=== PATIENT | male | born 1930 | race Caucasian/White ===

== ENCOUNTER 2018-06-16 19:56 | Inpatient (IN) | payer MEDICARE, BC ==
[~2018-06-16] VITALS: Ht 177.8 cm; Wt 77.1 kg
--- NOTE | ~2018-06-16 | EKG ---
[place], [place] ELECTROCARDIOGRAM REPORT NAME: MIKE CAM SR UNIT #: [id number] ROOM: 412 DOCTOR: EPIPHANY DRAFT REPORT BIRTHDATE: [birth year] [facility] Test Date: 2018-06-16 Test Time: 21:25:46 Pat Name: MIKE CAM Department: Room: 412 Gender: M Brush Maker Machine: Madonna Soriano : 1930 Requested By: TOMA MANCIA Order Number: [id number] Reading MD: Giacomo De MD Measurements Intervals [place] Rate: 82 P: [place]: QRS: -63 QRSD: 96 T: 124 QT: 422 QTc: 493 Interpretive Statements Atrial fibrillation Left anterior fascicular block Abnormal R-wave progression, late transition Borderline repolarization abnormality Borderline prolonged QT interval Compared to ECG 04/16/2018 18:18:06 No significant changes Electronically Signed On 06-17-2018 12:17:38 PST by Giacomo De MD CM:EKGRPT:ELECTROCARDIOGRAM REPORT [id number] TOMA MANCIA MD EPIPHANY DRAFT REPORT TOMA MANCIA MD
[~2018-06-16 19:56] MED LIST: ALLOPURINOL100 MG PO; AMLODIPINE BESYL5 MG PO; ARICEPT5 M1 PO; ASPIR LOW81 MG PO; CEPHALEXIN500 M1 PO; CIALIS5 MG PO; CIPRO500 MG PO; COLESTID1 GM PO; ESCITALOPRAM OXA5 MG PO; FLAGYL500 MG PO; FLECAINIDE ACET50 M1 PO; LISINOPRIL40 MG PO; Lopressor25 MG PO; MIRALAX POWDER17 G1 PO; PRILOSEC20 M2 PO; TOPROL XL25 MG PO; TYLENOL325 M2 PO; ZOFRAN ODT4 MG SL
[2018-06-16 19:59] VITALS: BP 154/94
[2018-06-16 20:41] LABS: BILIRUBIN NEGATIVE (NEGATIVE); BLOOD TRACE-INTACT (NEGATIVE); CLARITY CLEAR (CLEAR); COLOR YELLOW (YELLOW); GLUCOSE NEGATIVE (NEGATIVE); KETONE NEGATIVE (NEGATIVE); LEUKO ESTERASE NEGATIVE (NEGATIVE); NITRITE NEGATIVE (NEGATIVE); PH 5.5 (5.0-9.0); SPECIFIC GRAVITY >= 1.030 (1.005-1.030); UROBILINOGEN 0.2 E.U./dl (0.2-1.0)
[2018-06-16 20:48] LABS: MUCOUS TRACE
[2018-06-16 21:40] LABS: BASO % 0.3 % (0.0-1.0); EOS # 0.1 10*3/uL (0.0-0.4); HEMATOCRIT 39.4 % (42.0-52.0); HEMOGLOBIN 13.7 g/dl (14.0-18.0); LYMPH # 1.5 10*3/uL (1.3-4.4); MEAN CELL VOLUME 99.7 fl (80.0-94.0); MEAN CORPUSCULAR HGB 34.7 pg (27.0-31.0); MEAN CORPUSCULAR HGB CONC 34.8 g/dl (33.0-37.0); MEAN PLATELET VOLUME 10.5 fl (9.6-12.3); MONO # 0.4 10*3/uL (0.1-1.0); NEUT # 5.1 10*3/uL (2.3-7.9); NEUT % 71.4 % (47.0-73.0); PLATELET COUNT AUTOMATED 137 10*3/uL (130-400); RED BLOOD COUNT 3.95 10*6/uL (4.50-5.90); RED CELL DISTRI WIDTH 13.4 % (0-14.5); WHITE BLOOD COUNT 7.2 10*3/uL (4.8-10.8)
[2018-06-16 21:51] LABS: ALBUMIN 3.3 gm/dl (3.1-4.5); ALKALINE PHOSPHATASE 71 U/L (45-117); BUN 18 mg/dl (7-24); CHLORIDE 107 mmol/L (98-107); POTASSIUM 3.8 mmol/L (3.5-5.1); SGOT/AST 7 IU/L (3-35); SGPT/ALT 11 U/L (12-78); SODIUM 143 mmol/L (136-145); TOTAL PROTEIN 6.9 gm/dL (6.4-8.2)
[2018-06-16 21:58] LABS: TROPONIN I < 0.015 ng/ml (<0.045)
[2018-06-16 22:40] VITALS: BP 146/86
[2018-06-16 23:10] VITALS: BP 142/86
[2018-06-16 23:40] VITALS: BP 150/93
[2018-06-17] VITALS (8 sets, daily range): BP systolic 125–172; BP diastolic 56–96
[2018-06-17 06:00] LABS: BASO % 0.2 % (0.0-1.0); EOS # 0.1 10*3/uL (0.0-0.4); EOS % 1.1 % (1.0-4.0); HEMATOCRIT 36.6 % (42.0-52.0); HEMOGLOBIN 12.5 g/dl (14.0-18.0); LYMPH # 1.6 10*3/uL (1.3-4.4); LYMPH % 29.1 % (27.0-41.0); MEAN CELL VOLUME 100.8 fl (80.0-94.0); MEAN CORPUSCULAR HGB 34.4 pg (27.0-31.0); MEAN CORPUSCULAR HGB CONC 34.2 g/dl (33.0-37.0); MEAN PLATELET VOLUME 10.8 fl (9.6-12.3); MONO # 0.4 10*3/uL (0.1-1.0); MONO % 6.6 % (3.0-9.0); NEUT # 3.5 10*3/uL (2.3-7.9); NEUT % 62.8 % (47.0-73.0); PLATELET COUNT AUTOMATED 110 10*3/uL (130-400); RED BLOOD COUNT 3.63 10*6/uL (4.50-5.90); RED CELL DISTRI WIDTH 13.4 % (0-14.5); WHITE BLOOD COUNT 5.5 10*3/uL (4.8-10.8)
[2018-06-17 06:11] LABS: ALBUMIN 2.9 gm/dl (3.1-4.5); ALKALINE PHOSPHATASE 58 U/L (45-117); BUN 17 mg/dl (7-24); CHLORIDE 108 mmol/L (98-107); CREATININE 1.17 mg/dL (0.70-1.30); PHOSPHOROUS 2.8 mg/dL (2.5-4.9); POTASSIUM 3.7 mmol/L (3.5-5.1); SGOT/AST 7 IU/L (3-35); SGPT/ALT 11 U/L (12-78); SODIUM 145 mmol/L (136-145); TOTAL PROTEIN 6.1 gm/dL (6.4-8.2)
[2018-06-18] VITALS: BP 148/74
[2018-06-18 08:00] VITALS: BP 145/98
[2018-06-18 12:00] VITALS: BP 155/96
[2018-06-18 16:00] VITALS: BP 90/50
[2018-06-18 20:00] VITALS: BP 159/89
[2018-06-19] VITALS: BP 113/65
[2018-06-19 08:00] VITALS: BP 128/66
[2018-06-19 12:00] VITALS: BP 120/68
[2018-06-19 16:00] VITALS: BP 126/52
[2018-06-19 20:00] VITALS: BP 94/57
[2018-06-20] VITALS: BP 149/82
[2018-06-20 05:58] LABS: BUN 18 mg/dl (7-24); CHLORIDE 104 mmol/L (98-107); CREATININE 1.18 mg/dL (0.70-1.30); POTASSIUM 3.9 mmol/L (3.5-5.1); SODIUM 139 mmol/L (136-145)
[2018-06-20 06:11] LABS: BASO % 0.5 % (0.0-1.0); EOS # 0.1 10*3/uL (0.0-0.4); EOS % 1.5 % (1.0-4.0); HEMATOCRIT 37.3 % (42.0-52.0); HEMOGLOBIN 12.9 g/dl (14.0-18.0); LYMPH % 33.3 % (27.0-41.0); MEAN CELL VOLUME 99.2 fl (80.0-94.0); MEAN CORPUSCULAR HGB 34.3 pg (27.0-31.0); MEAN CORPUSCULAR HGB CONC 34.6 g/dl (33.0-37.0); MEAN PLATELET VOLUME 10.4 fl (9.6-12.3); MONO # 0.4 10*3/uL (0.1-1.0); MONO % 6.5 % (3.0-9.0); NEUT # 3.5 10*3/uL (2.3-7.9); PLATELET COUNT AUTOMATED 146 10*3/uL (130-400); RED BLOOD COUNT 3.76 10*6/uL (4.50-5.90); RED CELL DISTRI WIDTH 13.3 % (0-14.5)
[2018-06-20 08:01] VITALS: BP 176/92
[2018-06-20 12:00] VITALS: BP 140/76
[2018-06-20] MEDS ORDERED: AMLODIPINE BESYL5 MG PO (14:43)
[2018-06-20 16:00] VITALS: BP 119/83
== END 2018-06-20 19:45 | disposition home health service (06) | DRG 551 ==
LOC: ED 19:56 → EDHOLD 06-17 00:07 → 4E 06-17 00:07
PROVIDERS: Emergency Medicine Emergency Medical Services; Internal Medicine
DX: M48.061 Spinal stenosis, lumbar region without neurogenic claudication (principal); N17.0 Acute kidney failure with tubular necrosis; E87.2 Acidosis; E44.1 Mild protein-calorie malnutrition; M51.36 Other intervertebral disc degeneration, lumbar region; R26.2 Difficulty in walking, not elsewhere classified; M41.80 Other forms of scoliosis, site unspecified; E83.41 Hypermagnesemia; M43.10 Spondylolisthesis, site unspecified; E86.0 Dehydration; R31.29 Other microscopic hematuria; N28.1 Cyst of kidney, acquired; K57.90 Diverticulosis of intestine, part unspecified, without perforation or abscess without bleeding; N20.0 Calculus of kidney; R91.1 Solitary pulmonary nodule; F03.90 Unspecified dementia, unspecified severity, without behavioral disturbance, psychotic disturbance, mood disturbance, and anxiety; M47.896 Other spondylosis, lumbar region; I48.0 Paroxysmal atrial fibrillation; M10.9 Gout, unspecified; I10 Essential (primary) hypertension; R73.9 Hyperglycemia, unspecified; R53.1 Weakness; K21.9 Gastro-esophageal reflux disease without esophagitis; D64.9 Anemia, unspecified; R32 Unspecified urinary incontinence; R15.9 Full incontinence of feces; M19.90 Unspecified osteoarthritis, unspecified site; G62.9 Polyneuropathy, unspecified; E87.8 Other disorders of electrolyte and fluid balance, not elsewhere classified; R00.1 Bradycardia, unspecified; Z85.038 Personal history of other malignant neoplasm of large intestine; Z87.440 Personal history of urinary (tract) infections; Z90.49 Acquired absence of other specified parts of digestive tract; Z87.891 Personal history of nicotine dependence; Z82.3 Family history of stroke; Z82.49 Family history of ischemic heart disease and other diseases of the circulatory system; Z79.899 Other long term (current) drug therapy; Z68.24 Body mass index [BMI] 24.0-24.9, adult

== ENCOUNTER 2018-09-10 14:13 | Emergency (ER) | payer MEDICARE, BC ==
[~2018-09-10] VITALS: Ht 180.3 cm; Wt 82.6 kg
[2018-09-10 14:50] LABS: BASO % 0.6 % (0.0-1.0); EOS # 0.1 10*3/uL (0.0-0.4); EOS % 1.3 % (1.0-4.0); HEMATOCRIT 39.5 % (42.0-52.0); LYMPH # 1.5 10*3/uL (1.3-4.4); LYMPH % 27.3 % (27.0-41.0); MEAN CELL VOLUME 99.5 fl (80.0-94.0); MEAN CORPUSCULAR HGB 35.3 pg (27.0-31.0); MEAN CORPUSCULAR HGB CONC 35.4 g/dl (33.0-37.0); MEAN PLATELET VOLUME 9.8 fl (9.6-12.3); MONO # 0.3 10*3/uL (0.1-1.0); MONO % 5.6 % (3.0-9.0); NEUT # 3.5 10*3/uL (2.3-7.9); NEUT % 64.8 % (47.0-73.0); PLATELET COUNT AUTOMATED 131 10*3/uL (130-400); RED BLOOD COUNT 3.97 10*6/uL (4.50-5.90); RED CELL DISTRI WIDTH 13.1 % (0-14.5); WHITE BLOOD COUNT 5.3 10*3/uL (4.8-10.8)
[2018-09-10 15:22] LABS: ALBUMIN 3.3 gm/dl (3.1-4.5); ALKALINE PHOSPHATASE 69 U/L (45-117); BUN 19 mg/dl (7-24); CHLORIDE 105 mmol/L (98-107); CREATININE 1.21 mg/dL (0.70-1.30); POTASSIUM 4.1 mmol/L (3.5-5.1); SGOT/AST 21 IU/L (3-35); SGPT/ALT 17 U/L (12-78); SODIUM 139 mmol/L (136-145)
[2018-09-10 15:25] LABS: BILIRUBIN NEGATIVE (NEGATIVE); BLOOD 1+ (NEGATIVE); CLARITY CLEAR (CLEAR); COLOR YELLOW (YELLOW); GLUCOSE NEGATIVE (NEGATIVE); KETONE NEGATIVE (NEGATIVE); LEUKO ESTERASE NEGATIVE (NEGATIVE); NITRITE NEGATIVE (NEGATIVE); UROBILINOGEN 0.2 E.U./dl (0.2-1.0)
[2018-09-10 15:31] LABS: BACTERIA 1+; EPITHELIAL CELLS 0-2; MUCOUS TRACE; WBC 0-2 wbc/hpf (0-5)
== END 2018-09-10 16:45 | disposition home or self-care (01) ==
LOC: ED 14:13
PROVIDERS: Student in an Organized Health Care Education/Training Program
DX: R41.82 Altered mental status, unspecified (principal); I10 Essential (primary) hypertension; K21.9 Gastro-esophageal reflux disease without esophagitis; G62.9 Polyneuropathy, unspecified; I48.0 Paroxysmal atrial fibrillation; Z79.899 Other long term (current) drug therapy; Z79.82 Long term (current) use of aspirin; Z90.49 Acquired absence of other specified parts of digestive tract; Z87.891 Personal history of nicotine dependence

== ENCOUNTER 2019-04-09 00:26 | Inpatient (IN) | payer MEDICARE, BC ==
[~2019-04-09] VITALS: Ht 180.3 cm; Wt 73.1 kg
[2019-04-09] VITALS (9 sets, daily range): BP systolic 115–152; BP diastolic 58–92
--- NOTE | ~2019-04-09 | EKG ---
[place], [place] ELECTROCARDIOGRAM REPORT NAME: MIKE CAM SR UNIT #: [id number] ROOM: 512 DOCTOR: SAMANTA DRAFT REPORT BIRTHDATE: [birth year] [facility] Test Date: 2019-04-09 Test Time: 01:12:44 Pat Name: MIKE CAM Department: Room: 512 Gender: M Scout Professional Sports: Cam Hatfield : 1930 Requested By: TOMA MANCIA Order Number: [id number] Reading MD: Kurt Lang Measurements Intervals [place] Rate: 48 P: [place]: QRS: -58 QRSD: 98 T: -2 QT: 462 QTc: 413 Interpretive Statements Atrial fibrillation with slow ventricualr rates Left anterior fascicular block Low voltage, precordial leads Abnormal R-wave progression, early transition Consider anterior infarct Borderline T abnormalities, inferior leads Compared to ECG 03/22/2019 08:05:47 Low QRS voltage now present Myocardial infarct finding now present T-wave abnormality now present Ectopic atrial rhythm no longer present Electronically Signed On 04-09-2019 9:14:44 PDT by Kurt Lang CM:EKGRPT:ELECTROCARDIOGRAM REPORT [id number] TOMA MANCIA MD EPIPHANY DRAFT REPORT TOMA MANCIA MD
[~2019-04-09 00:26] MED LIST changes: +ARICEPT10 M1 PO; -ARICEPT5 M1 PO; -ESCITALOPRAM OXA5 MG PO; +LEXAPRO5 M1 PO; +LIDODERM1 EACH T; +METOPROLOL SUCC25 M2 PO; +MICRONIZED COLES1 GM PO; +PRILOSEC20 M1 PO
[2019-04-09 01:15] LABS: BASO % 0.3 % (0.0-1.0); EOS # 0.1 10*3/uL (0.0-0.4); EOS % 0.8 % (1.0-4.0); HEMATOCRIT 38.2 % (42.0-52.0); HEMOGLOBIN 13.2 g/dl (14.0-18.0); LYMPH # 1.6 10*3/uL (1.3-4.4); LYMPH % 20.3 % (27.0-41.0); MEAN CELL VOLUME 100.5 fl (80.0-94.0); MEAN CORPUSCULAR HGB 34.7 pg (27.0-31.0); MEAN CORPUSCULAR HGB CONC 34.6 g/dl (33.0-37.0); MEAN PLATELET VOLUME 10.2 fl (9.6-12.3); MONO # 0.5 10*3/uL (0.1-1.0); MONO % 5.9 % (3.0-9.0); NEUT # 5.8 10*3/uL (2.3-7.9); NEUT % 72.3 % (47.0-73.0); PLATELET COUNT AUTOMATED 148 10*3/uL (130-400); RED CELL DISTRI WIDTH 12.2 % (0-14.5)
[2019-04-09 01:31] LABS: ALBUMIN 3.5 gm/dl (3.1-4.5); ALKALINE PHOSPHATASE 67 U/L (45-117); BUN 29 mg/dl (7-24); CHLORIDE 102 mmol/L (98-107); CREATININE 1.98 mg/dL (0.70-1.30); LIPASE 129 U/L (73-393); SGOT/AST 13 IU/L (3-35); SGPT/ALT 15 U/L (12-78); SODIUM 135 mmol/L (136-145); TOTAL PROTEIN 7.2 gm/dL (6.4-8.2)
[2019-04-09 01:32] LABS: TROPONIN I < 0.015 ng/ml (<0.045)
[2019-04-09 03:36] LABS: BILIRUBIN NEGATIVE (NEGATIVE); BLOOD TRACE-LYSED (NEGATIVE); CLARITY CLEAR (CLEAR); COLOR YELLOW (YELLOW); GLUCOSE NEGATIVE (NEGATIVE); KETONE NEGATIVE (NEGATIVE); LEUKO ESTERASE NEGATIVE (NEGATIVE); NITRITE NEGATIVE (NEGATIVE); PH 5.5 (5.0-9.0); UROBILINOGEN 0.2 E.U./dl (0.2-1.0)
--- NOTE | 2019-04-09 06:02 | NUR ---
DR. WHEELER WAS NOTIFIED OF THE PATIENTS BRADYCARDIA IN THE 30'S. DR. WHEELER SATED TO LEAVE THE PATIENT MONITORED ON THE FLOOR. DR. WHEELER WAS NOTIFIED THAT THE PATIENT IS ASYMPTOMATIC. DR. WHEELER WITH NO REAL CONCERNS AT THIS TIME.
--- NOTE | 2019-04-09 06:25 | NUR ---
A 89, admitted to 5E, under the services of BRANDO Vo DO with a diagnosis of INTRACTABLE LOW BACK PAIN. Chief complaint is BACK PAIN. Patient arrived via bed from ER. Monitor applied. Initial assessment completed. Vital signs taken and recorded. BRANDO VO DO notified of admission to the unit. Orders received. See assessment for past medical history, medications and allergies. Patient and/or family oriented to unit. [address] visitation policy reviewed. Clothing/patient valuable form completed. MARIE LASSITER
[2019-04-09] MEDS ORDERED: AMLODIPINE BESYL5 MG PO (06:40)
--- NOTE | 2019-04-09 06:44 | NUR ---
CALLED DR. WHEELER MADE AWRAE MEDICATIONS VERIFIED BY HIS .
--- NOTE | 2019-04-09 10:10 | NUR ---
MADE DR. MEREDITH AWARE PT HR-40-50'S.
--- NOTE | 2019-04-09 15:00 | NUR ---
ASSISTED TO BATHROOM AND BACK TO BED. [facility]
--- NOTE | 2019-04-09 16:15 | NUR ---
PT RESTING IN BED. RESP-EASY AND REGULAR. CALL LIGHT IN REACH. BED ALARM ON.
--- NOTE | 2019-04-09 17:30 | NUR ---
REPOSITIONED IN BED SAT UP TO EAT. K-PAD REMOVED. REFUSED ANY PAIN MEDICATION. PAIN ONLY WITH MOVEMENT. CALL LIGHT IN REACH. BED ALARM ON.
[2019-04-10] VITALS: BP 149/84
[2019-04-10 07:06] LABS: CREATININE 1.87 mg/dL (0.70-1.30); PHOSPHOROUS 2.3 mg/dL (2.5-4.9); POTASSIUM 4.3 mmol/L (3.5-5.1)
[2019-04-10 08:00] VITALS: BP 168/90
--- NOTE | 2019-04-10 09:24 | NUR ---
PHYSICAL THERAPY Nursing screen received and chart reviewed. Physical therapy order received. Thank you. Marlin Canas,PT,DPT
--- NOTE | 2019-04-10 11:10 | NUR ---
ASSISTED FROM RECLINER CHAIR TO BATHROOM AND BACK TO BED. UP WITH ONE ASSIST. IVF INFUSING WITH NO PROBLEM. TOLERATED ROUTINE MED WITH NO PROBLEM. CALL LIGHT IN REACH. BED ALARM ON.
[2019-04-10 12:00] VITALS: BP 175/89
[2019-04-10 13:00] VITALS: BP 162/84
--- NOTE | 2019-04-10 14:05 | NUR ---
TYRESE spoke with the patients . She stated that the patient was at from a Wednesday to Wednesday when she signed him out early. She stated the patient was home for a week and began to have pains. She stated that she intends to take the patient back home upon discharge. The patients did stated she would like to have Home Healthcare for the patient. -TYRESE Salas
--- NOTE | 2019-04-10 15:02 | NUR ---
PHYSICAL THERAPY Physical therapy evaluation completed. Full details and evaluation to follow. Moderate complexity skilled PT evaluation performed ([id number]). PT will work on strength, transfers, gait, safety, and balance per POC. Recommend SNF upon discharge. Thank you, Araceli Weber,SPT Marlin Canas,PT,DPT
--- NOTE | 2019-04-10 15:02 | NUR ---
Occupational Therapy evaluation completed on 5 with full eval to follow. Precautions include fall risk; bed/chair alarm,h/o recent falls, walker use w/ poor safety,impaired cognition, moderate complexity level 92373 via chart review, testing and evaluation. Recommend OT per POC and SNF to enable safe return home w/ . Thank you. Yohan Larson OTr/L
[2019-04-10 16:00] VITALS: BP 153/85
--- NOTE | 2019-04-10 16:26 | NUR ---
Nursing screen completed and Occupational Therapy evaluation completed. Thank you.Yohan Larson OTR/L
--- NOTE | 2019-04-10 16:34 | NUR ---
PT C/O BACK PAIN. MEDICATED WITH NORCO PO PER PRN ORDER, SEE EMAR. CALL LIGHT IN REACH. IVF INFUSING WITH NO PROBLEM. VISITOR AT HIS SIDE. BED ALARM ON.
--- NOTE | 2019-04-10 16:55 | NUR ---
Optician Manager in to talk to patient. Patient states lives at HOME with . There are 3 steps in the home. Physician: IRINA Pharmacy: [facility] Home health services: NONE Patient's level of ADLs: MODERATE ASSIST Patient has working utilities: YES DME: WALKER CANE Follow-up physician's appointment after d/c: WILL BE MADE BY HOSPITALIST NURSE DIRECTOR ON DISCHARGE Does patient want to access PORTAL?: NO Discharge plan PT LIVES AT HOME WITH HIS . PT WAS RECENTLY AT BUT TOOK HIM HOME. STATES SHE WILL TAKE HIM BACK HOME WITH [facility] ON DISCHARGE. WILL CONTINUE TO FOLLOW. WILL HAVE A RIDE HOME PER .. OSMAN BALDWIN
--- NOTE | 2019-04-10 17:30 | NUR ---
PT SLEEPING IN BED. RESP-EASY AND REGULAR. IVF INFUSING WITH NO PROBLEM. CALL LIGHT IN REACH. BED ALARM ON.Y
[2019-04-10 20:00] VITALS: BP 156/85
[2019-04-11] VITALS: BP 153/82
[2019-04-11 07:13] LABS: BASO % 0.1 % (0.0-1.0); HEMATOCRIT 36.7 % (42.0-52.0); HEMOGLOBIN 12.9 g/dl (14.0-18.0); LYMPH # 0.9 10*3/uL (1.3-4.4); LYMPH % 9.9 % (27.0-41.0); MEAN CELL VOLUME 97.6 fl (80.0-94.0); MEAN CORPUSCULAR HGB 34.3 pg (27.0-31.0); MEAN CORPUSCULAR HGB CONC 35.1 g/dl (33.0-37.0); MONO # 0.4 10*3/uL (0.1-1.0); MONO % 4.6 % (3.0-9.0); NEUT # 7.9 10*3/uL (2.3-7.9); NEUT % 84.5 % (47.0-73.0); PLATELET COUNT AUTOMATED 151 10*3/uL (130-400); RED BLOOD COUNT 3.76 10*6/uL (4.50-5.90); RED CELL DISTRI WIDTH 12.2 % (0-14.5); WHITE BLOOD COUNT 9.3 10*3/uL (4.8-10.8)
[2019-04-11 07:32] LABS: ALBUMIN 3.8 gm/dl (3.1-4.5); POTASSIUM 4.2 mmol/L (3.5-5.1)
[2019-04-11 07:34] LABS: CREATININE 1.58 mg/dL (0.70-1.30); PHOSPHOROUS 2.5 mg/dL (2.5-4.9)
[2019-04-11 08:00] VITALS: BP 171/96
--- NOTE | 2019-04-11 08:52 | NUR ---
OT NOTE Pt was seen this A.M. 1:1 for 20 minute OT session. Upon arrival pt was supine in bed. Pt identified by name and and presented to therapy with increased confusion as indicated by stating "I am at my brothers house and went to [place] this morning." Reoriented pt to place and time. Pt transferred supine to sit EOB with Rona and use of bed rail for UE support. Sit to stand completed from bed level with Rona and use of w/w for UE support. Functional mobility completed into the bathroom with Rona and use of w/w with Rona due to pt presenting with poor safety awreness due to being impulsive, staying unsafe distance from the walker, and attempting to walk away without it. Pt had poor carry over throughout. Pt had two LOB throughout to the R that required Rona to correct. Pt transferred on/off standard commode with modA and use of grab bar for UE support. Clothing management completed with maxA due to having LOB when standing without UE support. Functional mobility then completed back to the EOB where he transferred sit to supine with modA. There he was left with call light in hand, tray table in place, and bed alarm activated for safety. Continue with rec D/C plan to SNF. KASH Lopez/Sharon
--- NOTE | 2019-04-11 08:55 | NUR ---
PHYSICAL THERAPY Patient seen this am 1:1 for therapy visit and was supine in bed upon therapist arrival. Patient identified by name / and presented with bouts of increased confusion. Patient needed multiple v/c's to focus on task in completing all therapy this session. Patient transfers supine to sit EOB and sit to stand with MIN A, ambulating 15' x 2 to bathrrom, MIN A, use of wh walker, and demonstrates Poor walker safety / navigation. Patient also needed v/c to improve upright standing posture to promote increased stride. Patient returned to supine in bed as breakfast arrived and remained with call light, tray table and bed alarm. Will continue per POC as tolerated, total treatment time 15 minutes. Lma Archuleta, SPINDLE PLUMBER
--- NOTE | 2019-04-11 09:30 | NUR ---
PT ASSISTED TO BATHROOM AND BACK TO BED. IVF INFUSING WITH NO PROBLEM. ALERT TO NAME ONLY. BED ALARM ON. TOLERATED ROUTINE MED WITH NO PROBLEM. CALL LIGHT IN REACH. SEE SHIFT ASSESSMENT.
[2019-04-11 12:00] VITALS: BP 152/76
[2019-04-11] MEDS ORDERED: NORCO 5-325 TA1 EACH PO (13:32)
--- NOTE | 2019-04-11 14:08 | NUR ---
Received order for home health via [facility]. Faxed order and clnicals, notified patient should dc in 1 or 2 days. Stated we would fax a face to face once we receive one.
--- NOTE | 2019-04-11 14:15 | NUR ---
WANTS TO TAKE PT HOME WITH [facility]. WILL CONTINUE TO FOLLOW.
--- NOTE | 2019-04-11 15:16 | NUR ---
PHYSICAL THERAPY CO-SIGN I approve of the Physical Therapy notes written above. ERNESTINE PIZANO PT, DPT
--- NOTE | 2019-04-11 15:30 | NUR ---
Discharge instructions reviewed with patient/family. Patient receptive and verbalizes understanding. Follow-up care arranged. Written instructions given to patient/family. HEPLOCK REMOVED. AT HIS SIDE. ESCORTED VIA WHEELCHAIR FOR DISCHARGE. MARIE LASSITER
--- NOTE | 2019-04-12 08:27 | NUR ---
OCCUPATIONAL THERAPY CO-SIGN I approve of the Occupational Therapy notes written above. HARRIETT LEIGH OTR/Sharon
== END 2019-04-11 15:30 | disposition home health service (06) | DRG 551 ==
LOC: ED 00:26 → EDHOLD 04:52 → 5E 04:52
PROVIDERS: Emergency Medicine Emergency Medical Services; Student in an Organized Health Care Education/Training Program; ADMIT Internal Medicine
DX: M48.061 Spinal stenosis, lumbar region without neurogenic claudication (principal); G93.41 Metabolic encephalopathy; E87.1 Hypo-osmolality and hyponatremia; E44.0 Moderate protein-calorie malnutrition; E87.2 Acidosis; M54.5 Low back pain; R00.1 Bradycardia, unspecified; R53.1 Weakness; E66.3 Overweight; R73.9 Hyperglycemia, unspecified; F03.90 Unspecified dementia, unspecified severity, without behavioral disturbance, psychotic disturbance, mood disturbance, and anxiety; I48.0 Paroxysmal atrial fibrillation; M1A.9XX0 Chronic gout, unspecified, without tophus (tophi); K21.9 Gastro-esophageal reflux disease without esophagitis; R26.2 Difficulty in walking, not elsewhere classified; K57.90 Diverticulosis of intestine, part unspecified, without perforation or abscess without bleeding; M41.80 Other forms of scoliosis, site unspecified; M51.36 Other intervertebral disc degeneration, lumbar region; M43.10 Spondylolisthesis, site unspecified; N20.0 Calculus of kidney; M19.90 Unspecified osteoarthritis, unspecified site; G62.9 Polyneuropathy, unspecified; D53.9 Nutritional anemia, unspecified; N18.3 Chronic kidney disease, stage 3 (moderate); I12.9 Hypertensive chronic kidney disease with stage 1 through stage 4 chronic kidney disease, or unspecified chronic kidney disease; E83.39 Other disorders of phosphorus metabolism; M47.816 Spondylosis without myelopathy or radiculopathy, lumbar region; Z85.038 Personal history of other malignant neoplasm of large intestine; Z90.49 Acquired absence of other specified parts of digestive tract; Z87.891 Personal history of nicotine dependence; Z87.442 Personal history of urinary calculi; Z82.3 Family history of stroke; Z82.49 Family history of ischemic heart disease and other diseases of the circulatory system; Z88.5 Allergy status to narcotic agent; Z79.899 Other long term (current) drug therapy; Z68.22 Body mass index [BMI] 22.0-22.9, adult

== ENCOUNTER 2019-06-15 14:55 | Inpatient (IN) | payer MEDICARE, BC ==
[2019-06-15] VITALS (7 sets, daily range): BP systolic 150–168; BP diastolic 79–104
[~2019-06-15] VITALS: Ht 187.9 cm; Wt 71.3 kg
[~2019-06-15 14:55] MED LIST changes: +NORCO 5-325 TA1 EACH PO
--- NOTE | 2019-06-15 15:44 | NUR ---
PT'S HAS HX OF HR'S IN 50'S. PT'S HR IS DROPPING TP HIGH 30'S AT TIMES. PROVIDER AWARE OF HR.
[2019-06-15 15:54] LABS: BASO % 0.2 % (0.0-1.0); EOS % 0.5 % (1.0-4.0); HEMOGLOBIN 13.2 g/dl (14.0-18.0); LYMPH # 1.8 10*3/uL (1.3-4.4); LYMPH % 27.1 % (27.0-41.0); MEAN CELL VOLUME 103.2 fl (80.0-94.0); MEAN CORPUSCULAR HGB 34.9 pg (27.0-31.0); MEAN CORPUSCULAR HGB CONC 33.8 g/dl (33.0-37.0); MEAN PLATELET VOLUME 9.9 fl (9.6-12.3); MONO # 0.4 10*3/uL (0.1-1.0); MONO % 6.3 % (3.0-9.0); NEUT # 4.3 10*3/uL (2.3-7.9); NEUT % 65.1 % (47.0-73.0); PLATELET COUNT AUTOMATED 128 10*3/uL (130-400); RED BLOOD COUNT 3.78 10*6/uL (4.50-5.90); RED CELL DISTRI WIDTH 14.6 % (0-14.5); WHITE BLOOD COUNT 6.5 10*3/uL (4.8-10.8)
[2019-06-15 16:11] LABS: ALBUMIN 3.1 gm/dl (3.1-4.5); ALKALINE PHOSPHATASE 47 U/L (45-117); BUN 25 mg/dl (7-24); CHLORIDE 108 mmol/L (98-107); CREATININE 1.21 mg/dL (0.70-1.30); POTASSIUM 3.6 mmol/L (3.5-5.1); SGOT/AST 15 IU/L (3-35); SGPT/ALT 20 U/L (12-78); SODIUM 144 mmol/L (136-145); TOTAL PROTEIN 6.1 gm/dL (6.4-8.2)
[2019-06-15 16:18] LABS: ACETAMINOPHEN (TYLENOL) < 5.0 ug/ml (10-30); ETHYL ALCOHOL < 3.0 mg/dl (<3); TROPONIN I < 0.015 ng/ml (<0.045)
--- NOTE | 2019-06-15 16:24 | NUR ---
PT SLEEPING IN ROOM AT THIS TIME. ENGINEER ASSISTANT IN PLACE. HR 52. CALL LIGHT WITHIN REACH. WILL CONTINUE TO MONITOR. NO DISTRESS NOTED.
[2019-06-15 17:28] LABS: BILIRUBIN NEGATIVE (NEGATIVE); BLOOD 2+ (NEGATIVE); CLARITY CLEAR (CLEAR); COLOR YELLOW (YELLOW); GLUCOSE NEGATIVE (NEGATIVE); KETONE NEGATIVE (NEGATIVE); LEUKO ESTERASE NEGATIVE (NEGATIVE); NITRITE NEGATIVE (NEGATIVE); PH 5.5 (5.0-9.0); SPECIFIC GRAVITY 1.025 (1.005-1.030); UROBILINOGEN 0.2 E.U./dl (0.2-1.0)
--- NOTE | 2019-06-15 17:38 | NUR ---
PT REMAINS SLEEPING AT THIS TIME.
[2019-06-15 17:39] LABS: URINE AMPHETAMINES < 1000 (1000ng/ml); URINE BARBITURATES < 200 (200ng/ml); URINE BENZODIAZEPINES < 200 (200ng/ml); URINE CANNABINOIDS (THC) < 50 (50ng/ml); URINE COCAINE < 300 (300ng/ml); URINE METHADONE < 300 (300ng/ml); URINE OPIATES < 300 (300ng/ml)
[2019-06-15 17:40] LABS: MUCOUS 2+
[2019-06-15 17:46] LABS: URINE PHENCYCLIDINE < 25 (25ng/ml)
--- NOTE | 2019-06-15 17:55 | NUR ---
PT'S NOW AT BEDSIDE. REPORTS THE PT HAS BEEN OBSTINATE AT HOME, REFUSES TO DO MOST THINGS. PT HAS DECREASED APPETITE PER . PT SLEEPS OFTEN, MOST DAYS UNTIL 6PM PER . STATES, "I DON'T KNOW IF HE WONT COOPERATE BECAUSE HE DOESN'T UNDERSTAND, OR IF IT'S BECAUSE HE JUST DOESN'T WANT TO." NOTES PT SOMETIMES DOES WALK ON HIS OWN. PT NEEDS ASSISTANCE WITH EATING. NOTES INCREASED AGITATION, WELL.
--- NOTE | 2019-06-15 18:24 | NUR ---
LACTIC ACID 2.4.
--- NOTE | 2019-06-15 19:11 | NUR ---
AT BEDSIDE. AWAITING BED PLACEMENT. PT SLEEPING AT THIS TIME. NO DISTRESS NOTED. WILL CONTINUE TO MONITOR.
--- NOTE | 2019-06-15 20:40 | NUR ---
A 89, admitted to , under the services of SHEILA Aguillon DO with a diagnosis of BRADYCARDIA, FAILURE TO THRIVE, ALTERED MENTAL STATUS. Chief complaint is MULTIPLE COMPLAINTS. Patient arrived via bed from ER. Monitor applied. Initial assessment completed. Vital signs taken and recorded. SHEILA AGUILLON DO notified of admission to the unit. Orders received. See assessment for past medical history, medications and allergies. Patient and/or family oriented to unit. [facility] visitation policy reviewed. Clothing/patient valuable form completed. PATRICK RATLIFF
--- NOTE | 2019-06-15 22:00 | NUR ---
MED REC UPDATED PER PT .
[2019-06-15] MEDS ORDERED: PREDNISONE10 MG PO (22:28)
[2019-06-15] MEDS ORDERED: VITAMIN D31000 UNIT PO (22:28)
[2019-06-16] VITALS: BP 149/104
[2019-06-16 04:00] VITALS: BP 154/88
--- NOTE | 2019-06-16 04:15 | NUR ---
NOTIFIED DR SANDERS THAT PT MED REC IS UP TO DATE.
--- NOTE | 2019-06-16 04:26 | NUR ---
PT RESTING IN BED. RESPIRATIONS EASY AND UNLABORED. NO S/S OF DISTRESS NOTED. PULSE OX WNL ON ROOM AIR. IV FLUIDS INFUSING INTO RIGHT HAND IV. ALL SAFETY MEASURES IN PLACE. CALL LIGHT IN REACH.
[2019-06-16 06:04] LABS: BASO % 0.3 % (0.0-1.0); EOS # 0.1 10*3/uL (0.0-0.4); EOS % 0.9 % (1.0-4.0); HEMATOCRIT 38.1 % (42.0-52.0); HEMOGLOBIN 12.9 g/dl (14.0-18.0); LYMPH # 1.6 10*3/uL (1.3-4.4); LYMPH % 24.2 % (27.0-41.0); MEAN CORPUSCULAR HGB 35.5 pg (27.0-31.0); MEAN CORPUSCULAR HGB CONC 33.9 g/dl (33.0-37.0); MEAN PLATELET VOLUME 10.2 fl (9.6-12.3); MONO # 0.4 10*3/uL (0.1-1.0); MONO % 5.6 % (3.0-9.0); NEUT # 4.6 10*3/uL (2.3-7.9); NEUT % 68.3 % (47.0-73.0); PLATELET COUNT AUTOMATED 118 10*3/uL (130-400); RED BLOOD COUNT 3.63 10*6/uL (4.50-5.90); RED CELL DISTRI WIDTH 14.7 % (0-14.5); WHITE BLOOD COUNT 6.8 10*3/uL (4.8-10.8)
[2019-06-16 06:19] LABS: BUN 22 mg/dl (7-24); CHLORIDE 108 mmol/L (98-107); CREATININE 1.01 mg/dL (0.70-1.30); POTASSIUM 3.5 mmol/L (3.5-5.1); SODIUM 143 mmol/L (136-145)
[2019-06-16 07:42] VITALS: BP 148/82
--- NOTE | 2019-06-16 08:25 | NUR ---
Occupational therapy orders received and chart reviewed. Patient was in bed with bed alarm on upon arrival. Patient was lethargic, attempted arousing patient with a sternal rub with poor carryover. Patient was oriented to name only, re-oriented to time and place. Patient refusing to sit EOB, stating "I'm not doing it. I'm cold." Patient was provided with an additional blanket per request. Will attempt an OT evaluation. Thank you for the referral. Bing Ayon, OTR/L
--- NOTE | 2019-06-16 08:40 | NUR ---
PHYSICAL THERAPY Attempted evaluation this morning pt requring verbal/tactile stim to awaken, when awake refusing any activity at present time, will follow. Charlotte Chowdhury PT
--- NOTE | 2019-06-16 09:43 | NUR ---
PT ATE BREAKFAST AND IS CURRENTLY RESTING COMFORTABLY IN BED, NO COMPLAINTS AT THIS TIME. YURI ESQUIVEL
--- NOTE | 2019-06-16 10:09 | NUR ---
DR. GRIFFIN MADE AWARE OF PATIENT'S HR OF 30.
[2019-06-16 12:00] VITALS: BP 146/76
--- NOTE | 2019-06-16 12:16 | NUR ---
PT BED BATHED AND CHANGED, REFUSING TO EAT LUNCH AT THIS TIME, DRINKING WHEN PROMPTED. PT SLEEPING COMFORTABLY. YURI AHMADI SPAARONCC
--- NOTE | 2019-06-16 13:04 | NUR ---
Engineering Programmer in to talk to patient. Patient states lives at HOME with . There are NO steps in the home. Physician: IRINA [facility] Home health services: [facility] Patient's level of ADLs: MODERATE ASSIST Patient has working utilities: YES DME: WALKER,ROLLATOR, CANE Follow-up physician's appointment after d/c: WILL BE MADE BY HOSPITALIST NURSE DIRECTOR ON DISCHARGE Does patient want to access PORTAL?: NO Discharge plan PT UNABLE TO GIVE ANY INFORMATION. CALLED AND SPOKE WITH HER. PT LIVES AT HOME WITH AND IS NORMALLY ABLE TO GET UP AND AROUND TO GET TO TABLE TO EAT AND TO BATHROOM BUT THE LAST FEW DAYS HAS BEEN TOO WEAK TO GET UP PER . SHE ALSO STATES THEY HAVE [facility] AT HOME. IS REQUESTING REFERRAL TO [facility] PRIOR TO RETURNING HOME FOR REHAB. MANAGER STERILE INFORMED AND MADE REFERRAL. WILL CONTINUE TO FOLLOW.. OSMAN BALDWIN
--- NOTE | 2019-06-16 13:26 | NUR ---
ORDERED LUNCH FOR PT TO ENCOURAGE TO EAT. PT IS IRRITABLE WHEN DISTURBED FROM SLEEP. PT GET AGGRAVATED WHEN TURNED OR MOVED. YURI AHMADI SPAARONCC
[2019-06-16 16:00] VITALS: BP 155/97
--- NOTE | 2019-06-16 19:00 | NUR ---
REPORT RECEIVED FROM DAYLIGHT NURSE. PT LYING IN BED SLEEPING AT THIS TIME. AT BEDSIDE. NO SIGNS/SYMPTOMS OF DISTRESS. PT CALL LIGHT IN REACH.
[2019-06-16 20:00] VITALS: BP 138/83
--- NOTE | 2019-06-16 22:00 | NUR ---
PT SLEEPING AT THIS TIME. REPIRATIONS EASY AND UNLABORED. BED ALARM INTACT, CALL LIGHT IN REACH.
[2019-06-17] VITALS: BP 140/90
--- NOTE | 2019-06-17 02:00 | NUR ---
PT SLEEPING AT THIS TIME.
--- NOTE | 2019-06-17 03:06 | NUR ---
DR. GONSALEZ NOTIFIED OF HR JUMP INTO 180'S. NO NEW ORDERS AT THIS TIME. PT ASYMPTOMATIC, SLEEPING AT THIS TIME.
--- NOTE | 2019-06-17 06:41 | NUR ---
WHILE GIVING PT MORNING MEDICATIONS, PT WAS SITTING 90 DEGREES IN BED. AFTER SWALLOWING APPLESAUCE, PT TOOK DRINK OF WATER AND CHOKED. NOTIFIED DR. GONSALEZ. STATED HE WOULD ORDER SWALLOW STUDY FOR PT. PT LYING IN BED AT THIS TIME. NO DISTRESS NOTED, VOICES NO COMPLAINTS.
[2019-06-17 07:35] LABS: BASO % 0.1 % (0.0-1.0); EOS % 0.3 % (1.0-4.0); HEMATOCRIT 37.3 % (42.0-52.0); HEMOGLOBIN 12.9 g/dl (14.0-18.0); LYMPH # 1.8 10*3/uL (1.3-4.4); MEAN CELL VOLUME 103.9 fl (80.0-94.0); MEAN CORPUSCULAR HGB 35.9 pg (27.0-31.0); MEAN CORPUSCULAR HGB CONC 34.6 g/dl (33.0-37.0); MEAN PLATELET VOLUME 10.8 fl (9.6-12.3); MONO # 0.4 10*3/uL (0.1-1.0); MONO % 3.8 % (3.0-9.0); NEUT % 76.1 % (47.0-73.0); NUCLEATED RED BLOOD CELL 0.2 % (0.0-0.0); PLATELET COUNT AUTOMATED 136 10*3/uL (130-400); RED BLOOD COUNT 3.59 10*6/uL (4.50-5.90); RED CELL DISTRI WIDTH 14.8 % (0-14.5); WHITE BLOOD COUNT 9.2 10*3/uL (4.8-10.8)
[2019-06-17 07:58] LABS: BUN 22 mg/dl (7-24); CHLORIDE 108 mmol/L (98-107); CREATININE 1.14 mg/dL (0.70-1.30); PHOSPHOROUS 2.3 mg/dL (2.5-4.9); POTASSIUM 3.4 mmol/L (3.5-5.1); SODIUM 142 mmol/L (136-145)
[2019-06-17 08:00] VITALS: BP 142/88
--- NOTE | 2019-06-17 10:00 | NUR ---
PHYSICAL THERAPY PT EVAL COMPLETED ;FULL EVAL TO FOLLOW. RECOMMEND PT WHILE HERE TO ADDRESS DECREASED STRENGTH AND FUNCTIONAL MOBILITY. PT EVAL IS MODERATE COMPLEXITY: [id number]. D/C RECOMMENDATIOSN ARE FOR SNF BASED ON EVAL TODAY IF HE IS ABLE TO MEET CRITERIA AND HOME WITH HOME HEALTH IF HE DOES NOT MEET CRITERIA. THANK YOU FOR REFERRAL AMY MILLAN PT
[2019-06-17 12:00] VITALS: BP 139/83
[2019-06-17 16:00] VITALS: BP 117/73
--- NOTE | 2019-06-17 19:30 | NUR ---
REPORT RECEIVED FROM MARE ISBELL. PT SLEEPING AT THIS TIME. RESPIRATIONS EASY AND UNLABORED. CALL LIGHT IN REACH.
[2019-06-17 20:00] VITALS: BP 145/81
--- NOTE | 2019-06-17 22:10 | NUR ---
PATIENT ARRIVED TO FLOOR VIA BED AT THIS TIME A TRANSFER FROM . PATIENT ASSESSMENT COMPLETED WITHOUT INCIDENT, AT BEDSIDE. REPORT RECEIVED FROM OFELIA AT THE BEDSIDE. CALL LIGHT WITHIN REACH, WILL CONTINUE TO MONITOR.
[2019-06-18] VITALS: BP 116/73; BP 129/84
[2019-06-18 08:00] VITALS: BP 132/78
[2019-06-18 12:00] VITALS: BP 158/76
[2019-06-18 16:00] VITALS: BP 157/97
[2019-06-18 20:00] VITALS: BP 123/71
[2019-06-19] VITALS: BP 156/80
--- NOTE | 2019-06-19 02:41 | NUR ---
24 HR chart check completed.
--- NOTE | 2019-06-19 03:30 | NUR ---
PT TEARFUL STATING SHE IS IN [place] RATES IT A 7/10 AND REQUESTING SOMETHING TO HELP. PERCOCET PO IS GIVEN AT THIS TIME. WILL CONTINUE TO MONITOR THE PATIENT.
--- NOTE | 2019-06-19 05:01 | NUR ---
Patient sleeping. Respirations relaxed and easy. Siderails up . [place] on. SUN SAMUELS
[2019-06-19 06:44] LABS: BASO % 0.1 % (0.0-1.0); EOS # 0.1 10*3/uL (0.0-0.4); EOS % 0.7 % (1.0-4.0); HEMATOCRIT 35.9 % (42.0-52.0); HEMOGLOBIN 12.4 g/dl (14.0-18.0); LYMPH # 1.6 10*3/uL (1.3-4.4); LYMPH % 21.2 % (27.0-41.0); MEAN CELL VOLUME 103.5 fl (80.0-94.0); MEAN CORPUSCULAR HGB 35.7 pg (27.0-31.0); MEAN CORPUSCULAR HGB CONC 34.5 g/dl (33.0-37.0); MEAN PLATELET VOLUME 10.6 fl (9.6-12.3); MONO # 0.3 10*3/uL (0.1-1.0); MONO % 4.2 % (3.0-9.0); NEUT # 5.6 10*3/uL (2.3-7.9); NEUT % 73.1 % (47.0-73.0); PLATELET COUNT AUTOMATED 125 10*3/uL (130-400); RED BLOOD COUNT 3.47 10*6/uL (4.50-5.90); RED CELL DISTRI WIDTH 14.6 % (0-14.5); WHITE BLOOD COUNT 7.7 10*3/uL (4.8-10.8)
[2019-06-19 07:10] LABS: CREATININE 1.01 mg/dL (0.70-1.30)
[2019-06-19 08:00] VITALS: BP 134/76
--- NOTE | 2019-06-19 08:39 | NUR ---
Updated progress notes and physical therapy eval faxed to [facility] to complete Vladislav's referral. Waiting on acceptance.
--- NOTE | 2019-06-19 09:10 | NUR ---
Occupational therapy orders received and OT evaluation completed in full on floor five. Patient precautions include fall risk, ww use, decreased safety awareness, and bed alarm. Per OT evaluation, OT recommends a SNF. Patient's was present in the room, and was inquiring about a SNF placement. was told that case management will speak with her about d/c planning. Patient complexity is moderate, [id number]. Thank you for the referral. Bing Ayon, OTR/L
--- NOTE | 2019-06-19 11:01 | NUR ---
24 HR chart check completed.
[2019-06-19 12:00] VITALS: BP 99/64
--- NOTE | 2019-06-19 12:58 | NUR ---
OT NOTE Pt was seen this P.M. 1:1 for 20 minute OT session. Upon arrival pt was supine in bed. Pt identified by name and and had no complaints at this time. Pt transferred supine to sit EOB with modA for assist with UB. Sit to stand completed from bed level with Rona X 2 and use of w/w for UE support. Functional mobility was then completed into the bathroom with modA X 2 and use of w/w. Throughout pt required assist for walker safety, walker navigation, correcting B knee buckle that occured several times, and verbal prompts for slowing down and staying safe distance from the walker. Pt transferred on to standard commode with Rona, clothing management completed with maxA, and toilet hygiene completed with maxA due to major LOB forwards when standing without UE support. Functional mobility was then completed back to the EOB with modA X 2 and use of w/w. Pt continued to present with poor safety awareness increasing risk of falls. He then transferred sit to supine with modA for assist with BLE and maxA X 2 for repositioning in bed. Pt was left supine in bed with call light in hand, tray table in place, and bed alarm activated for safety. Continue with rec D/C plan to SNF. KASH Kenny/Sharon
--- NOTE | 2019-06-19 13:01 | NUR ---
PHYSICAL THERAPY Patient presented to therapy in supine with head of bed elevated and no complaints. Patient seems very lethargic. Patient has bed alarm activated. Patient gives informed consent for treatment. Patient was identified by name and on wristband. Patient performed supine to sitting transfer at EOB with MOD A X 2. PatienT SCOOT TO EOB with MAX A X 2 using sheet to scoot patient forwards to EOB. Patient performed sitting at EOB with SBA. Patient transferred sit to stand from EOB with MOD A X 2. Patient ambulated 15' x 2 with MIN A X 1 and verbal cues for upright posture, staying within CAIN of walker, and locking knees into extension to prevent knees from buckling. Patient had two instances where his knees began to buckle requirng MOD A X 2 to correct to upright position. Patient sit to stand out of low chair with MOD A X 2. Patient required constant verbal cues for hand placement and pushing off of armrests of chair to stand. Patient transferred back to supine in bed with MOD A X 2. Patient moved up to head of bed with sheet with MAX A X 2. Patient was left in supine in bed with head of bed elevated, call light within reach and bed alarm activated. Patient was 1:1 with this ROUTING MACHINE OPERATOR for 20 minutes total. DELLA SINGER ROUTING MACHINE OPERATOR
--- NOTE | 2019-06-19 13:27 | NUR ---
Updated therapy notes faxed to [facility], still waiting on acceptance.
--- NOTE | 2019-06-19 14:03 | NUR ---
[facility] questioning this patient thinking he may become watermaster care and since he is an out of state resident they are unsure about taking him. [facility] and [facility] [place]. She agreed to have the referral faxed there and she will do a visit to that facility this eveing and let me know in the morning.
[2019-06-19 16:00] VITALS: BP 139/76
--- NOTE | 2019-06-19 18:11 | NUR ---
Patient resting quietly with no c/o discomfort. Respirations easy and regular. Vital signs stable. No overt distress. NICOLE MUÑOZ
[2019-06-19 20:00] VITALS: BP 133/70
[2019-06-20] VITALS: BP 125/61
--- NOTE | 2019-06-20 01:57 | NUR ---
24 HR chart check completed.
--- NOTE | 2019-06-20 06:00 | NUR ---
PATIENT NOTED TO BE AGITATED AT THIS TIME, RIPPING OFF CLOTHES AND DEPENDS. PATIENT ALSO RIPPED OUT IV. PATIENT WAS CLEANED AND NEW BEDDING/GOWN. PATIENT IS NOT RECIEVING IV MEDICATIONS, NEW IV NOT PLACED, DR. GONSALEZ AWARE.
[2019-06-20 06:26] LABS: BASO % 0.2 % (0.0-1.0); EOS % 0.7 % (1.0-4.0); HEMATOCRIT 35.6 % (42.0-52.0); HEMOGLOBIN 12.2 g/dl (14.0-18.0); LYMPH # 1.8 10*3/uL (1.3-4.4); LYMPH % 29.8 % (27.0-41.0); MEAN CELL VOLUME 104.1 fl (80.0-94.0); MEAN CORPUSCULAR HGB 35.7 pg (27.0-31.0); MEAN CORPUSCULAR HGB CONC 34.3 g/dl (33.0-37.0); MEAN PLATELET VOLUME 10.1 fl (9.6-12.3); MONO # 0.3 10*3/uL (0.1-1.0); NEUT # 3.8 10*3/uL (2.3-7.9); NEUT % 63.6 % (47.0-73.0); PLATELET COUNT AUTOMATED 114 10*3/uL (130-400); RED BLOOD COUNT 3.42 10*6/uL (4.50-5.90); RED CELL DISTRI WIDTH 14.6 % (0-14.5)
[2019-06-20 06:58] LABS: BUN 15 mg/dl (7-24); CHLORIDE 107 mmol/L (98-107); CREATININE 1.09 mg/dL (0.70-1.30); POTASSIUM 3.4 mmol/L (3.5-5.1); SODIUM 141 mmol/L (136-145)
[2019-06-20 08:00] VITALS: BP 138/72
--- NOTE | 2019-06-20 08:30 | NUR ---
OT NOTE Pt was seen this A.M. 1:1 for 15 minute OT session. Upon arrival pt was supine in bed. Pt identified by name and and had no complaints at this time. Pt transferred supine to sit EOB with modA X 2 for assist with BLE and UB. While sitting EOB challenged pt's static sitting balance and pt was able to maintain F- due to requiring Rona to correct retrograde posture. Multiple sit to stand transfers were completed from bed level with Rona X 2 and use of w/w for UE support. Challenged pt's static standing tolerance needed for increased I in self care tasks and functional transfers. Pt was able to tolerate aprox 2 minutes, 1 minute 5 seconds, and 1 minute 36 seocnds before sitting due to fatigue. Throughout static standing pt required Rona due to multiple B knee buckle episodes. Pt then transferred back into bed sit to supine with maxA X 2. There he was left with call light in hand, tray table in place, and bed alarm activated for safety. Continue with rec D/C plan to SNF. KASH Kenny/Sharon
--- NOTE | 2019-06-20 08:51 | NUR ---
PHYSICAL THERAPY Patient presented to therapy in supine with head of bed elevated and report of feeling tired. Patient was identified by name and on wristband. Patient gives informed consent for treatment. Patient performed supine to sitting at EOB transfer with MOD A X 2. Patient sat on EOB with MIN A X 1 with verbal cues for leaning forwards to prevent retrograde leaning back in sitting. Patient scooted ot EOB with MAX A X 2. Patient sit to stand transfer with MOD A X 2 with verbal cues for hand placement and pusing off railing with one hand. Patient stood at Walker for 2 minutes total with CGA X 2 to MIN A X 2 at times, when his knees became weak x 2. Patient verbal cued to lock knees into extension to prevent knees from buckling. Patient ambulated 5' x 1 forwards and backwards with Wh Walker with CGA X 2 to MIN A X 2. Patient performed sit to stand again from EOB with MOD A X 2. Patient stood x 2 at Walker for 1 minute the 2nd time and 1 minute 36 seconds with CGA X 2. Patient transferred back to supine in bed with MAX A X 2. Patient was left in supine in bed with call light within reach, bed alarm activated and head of bed elevated. Patient was 1:1 with this VALUATION MANAGER for 21 minutes total. DELLA SINGER VALUATION MANAGER
--- NOTE | 2019-06-20 10:19 | NUR ---
Patient accepted to [facility], 3 night stay complete. Patient is ok to go when medically stable for discharge.
[2019-06-20 12:00] VITALS: BP 127/70
--- NOTE | 2019-06-20 14:12 | NUR ---
Patient is discharged to [facility], transportation scheduled for 4PM with [facility]. NH, nursing/snack steward and all notified.
--- NOTE | 2019-06-20 16:07 | NUR ---
pt discharged to [facility] at this time via [facility] ambulance.
--- NOTE | 2019-06-21 07:28 | NUR ---
OCCUPATIONAL THERAPY CO-SIGN I approve of the Occupational Therapy notes written above. HARRIETT LEIGH OTR/Sharon
--- NOTE | 2019-06-21 07:47 | NUR ---
PHYSICAL THERAPY CO-SIGN I approve of the Physical Therapy notes written above. Charlotte Chowdhury PT
== END 2019-06-20 16:07 | disposition other institution (70) | DRG 640 ==
LOC: ED 14:55 → EDHOLD 18:19 → 4E 18:19 → 5E 18:19 → 4E 19:48 → 5E 06-17 22:04
PROVIDERS: Internal Medicine; Physician Assistant; ADMIT Family Medicine
DX: R62.7 Adult failure to thrive (principal); G93.41 Metabolic encephalopathy; E44.0 Moderate protein-calorie malnutrition; E87.2 Acidosis; F03.91 Unspecified dementia, unspecified severity, with behavioral disturbance; R73.9 Hyperglycemia, unspecified; D53.9 Nutritional anemia, unspecified; D69.6 Thrombocytopenia, unspecified; E87.8 Other disorders of electrolyte and fluid balance, not elsewhere classified; I48.0 Paroxysmal atrial fibrillation; K21.9 Gastro-esophageal reflux disease without esophagitis; M1A.9XX0 Chronic gout, unspecified, without tophus (tophi); M41.80 Other forms of scoliosis, site unspecified; E55.9 Vitamin D deficiency, unspecified; R73.03 Prediabetes; M51.36 Other intervertebral disc degeneration, lumbar region; M19.90 Unspecified osteoarthritis, unspecified site; M54.5 Low back pain; G62.9 Polyneuropathy, unspecified; N18.3 Chronic kidney disease, stage 3 (moderate); M48.061 Spinal stenosis, lumbar region without neurogenic claudication; M47.816 Spondylosis without myelopathy or radiculopathy, lumbar region; I12.9 Hypertensive chronic kidney disease with stage 1 through stage 4 chronic kidney disease, or unspecified chronic kidney disease; Z88.5 Allergy status to narcotic agent; Z90.49 Acquired absence of other specified parts of digestive tract; Z82.3 Family history of stroke; Z82.49 Family history of ischemic heart disease and other diseases of the circulatory system; Z68.20 Body mass index [BMI] 20.0-20.9, adult

== ENCOUNTER 2019-07-02 14:56 | Inpatient (IN) | payer MEDICARE, BC ==
[~2019-07-02] VITALS: Ht 188 cm; Wt 75.7 kg
[~2019-07-02 14:56] MED LIST changes: +PREDNISONE10 MG PO; +VITAMIN D31000 UNIT PO
[2019-07-02 15:02] VITALS: BP 176/96
[2019-07-02 15:28] LABS: BILIRUBIN NEGATIVE (NEGATIVE); BLOOD 1+ (NEGATIVE); CLARITY CLEAR (CLEAR); COLOR YELLOW (YELLOW); GLUCOSE NEGATIVE (NEGATIVE); KETONE NEGATIVE (NEGATIVE); LEUKO ESTERASE NEGATIVE (NEGATIVE); NITRITE NEGATIVE (NEGATIVE); SPECIFIC GRAVITY 1.025 (1.005-1.030); UROBILINOGEN 0.2 E.U./dl (0.2-1.0)
[2019-07-02 15:42] LABS: MUCOUS 1+; WBC 0-2 wbc/hpf (0-5)
[2019-07-02 16:01] LABS: BASO % 0.3 % (0.0-1.0); EOS % 0.5 % (1.0-4.0); HEMATOCRIT 41.5 % (42.0-52.0); HEMOGLOBIN 13.8 g/dl (14.0-18.0); LYMPH # 1.9 10*3/uL (1.3-4.4); MEAN CELL VOLUME 105.6 fl (80.0-94.0); MEAN CORPUSCULAR HGB 35.1 pg (27.0-31.0); MEAN CORPUSCULAR HGB CONC 33.3 g/dl (33.0-37.0); MEAN PLATELET VOLUME 9.7 fl (9.6-12.3); MONO # 0.3 10*3/uL (0.1-1.0); MONO % 5.1 % (3.0-9.0); NEUT # 4.3 10*3/uL (2.3-7.9); NEUT % 64.5 % (47.0-73.0); PLATELET COUNT AUTOMATED 155 10*3/uL (130-400); RED BLOOD COUNT 3.93 10*6/uL (4.50-5.90); RED CELL DISTRI WIDTH 13.7 % (0-14.5); WHITE BLOOD COUNT 6.6 10*3/uL (4.8-10.8)
--- NOTE | 2019-07-02 16:12 | NUR ---
PT'S SON IN ROOM AT BEDSIDE. REPORTS PT HAS HAD DECREASED APETITE.
[2019-07-02 16:13] LABS: ACT PARTIAL THROMBO TIME 26.8 SECONDS (20.0-32.1)
[2019-07-02 16:17] LABS: ALBUMIN 3.3 gm/dl (3.1-4.5); ALKALINE PHOSPHATASE 64 U/L (45-117); BUN 17 mg/dl (7-24); CHLORIDE 112 mmol/L (98-107); CREATININE 1.13 mg/dL (0.70-1.30); LIPASE 23 U/L (73-393); POTASSIUM 4.7 mmol/L (3.5-5.1); SGOT/AST 9 IU/L (3-35); SGPT/ALT 11 U/L (12-78); SODIUM 143 mmol/L (136-145); TOTAL PROTEIN 6.7 gm/dL (6.4-8.2)
[2019-07-02 16:18] LABS: TROPONIN I < 0.015 ng/ml (<0.045)
--- NOTE | 2019-07-02 16:21 | NUR ---
LACTIC ACID 2.6.
[2019-07-02 17:13] VITALS: BP 174/92
[2019-07-02 17:48] VITALS: BP 182/98
[2019-07-02] MEDS ORDERED: MEMANTINE HCL10 MG PO (18:16)
[2019-07-02] MEDS ORDERED: DULOXETINE HCL60 MG PO (18:18)
[2019-07-02] MEDS ORDERED: POTASSIUM CHLO20 ME4 PO (18:19)
[2019-07-02 18:30] VITALS: BP 172/82
--- NOTE | 2019-07-02 18:30 | NUR ---
A 89, admitted to , under the services of ASHTYN Wood DO with a diagnosis of METABOLIC ENCEPHALOPATHY AND DEHYDRATION. Chief complaint is . Patient arrived via CART from ER. Monitor applied. Initial assessment completed. Vital signs taken and recorded. ASHTYN WOOD DO notified of admission to the unit. Orders received. See assessment for past medical history, medications and allergies. Patient and/or family oriented to unit. [facility] visitation policy reviewed. Clothing/patient valuable form completed. MARIANA JAY
--- NOTE | 2019-07-02 19:12 | NUR ---
MEDS RECONCILED AGAINST MED CLAIM HX. ASKED SON TO HAVE PT CALL TURBO ELECTRIC OPERATOR RN AND REVERIFY HOME MEDS.PT CONFUSED AND SON POOR HISTORIAN.
[2019-07-02 20:00] VITALS: BP 184/90
[2019-07-02] MEDS ORDERED: NORVASC5 MG PO (20:25)
--- NOTE | 2019-07-02 20:28 | NUR ---
PATIENT MEDICATED WITH HYDRALAZINE 5MG FOR B/P OF 184/90. WILL MONITOR FOR EFFECTIVENESS.
[2019-07-03] VITALS: BP 175/97
--- NOTE | 2019-07-03 00:16 | NUR ---
MEDICATED WITH HYDRALAZINE 5MG AGAIN FOR B/P OF . WILL CONTINUE TO MONITOR. DR. ADAM NOTIFIED.
--- NOTE | 2019-07-03 01:01 | NUR ---
BLOOD ON SHEETS. PATIENT NOTED TO HAVE PULLED OUT IV IN RIGHT HAND. IV IN LEFT AC PATENT WITH NS INFUSING AT 25CC/HR. WILL CONTINUE TO MONITOR.
[2019-07-03 03:10] VITALS: BP 170/96
[2019-07-03 06:22] LABS: BASO % 0.2 % (0.0-1.0); EOS % 0.2 % (1.0-4.0); HEMATOCRIT 43.7 % (42.0-52.0); HEMOGLOBIN 14.5 g/dl (14.0-18.0); LYMPH # 1.6 10*3/uL (1.3-4.4); LYMPH % 18.8 % (27.0-41.0); MEAN CELL VOLUME 103.8 fl (80.0-94.0); MEAN CORPUSCULAR HGB 34.4 pg (27.0-31.0); MEAN CORPUSCULAR HGB CONC 33.2 g/dl (33.0-37.0); MEAN PLATELET VOLUME 9.8 fl (9.6-12.3); MONO # 0.4 10*3/uL (0.1-1.0); MONO % 4.5 % (3.0-9.0); NEUT # 6.2 10*3/uL (2.3-7.9); NEUT % 75.8 % (47.0-73.0); PLATELET COUNT AUTOMATED 160 10*3/uL (130-400); RED BLOOD COUNT 4.21 10*6/uL (4.50-5.90); RED CELL DISTRI WIDTH 13.5 % (0-14.5); WHITE BLOOD COUNT 8.2 10*3/uL (4.8-10.8)
[2019-07-03 06:29] LABS: BUN 12 mg/dl (7-24); CHLORIDE 106 mmol/L (98-107); CREATININE 0.97 mg/dL (0.70-1.30); PHOSPHOROUS 2.4 mg/dL (2.5-4.9); POTASSIUM 3.9 mmol/L (3.5-5.1); SODIUM 141 mmol/L (136-145)
--- NOTE | 2019-07-03 06:43 | NUR ---
TUTU BANSALMIKE [id number] Please refer to the physician's history and physical for past medical history, comorbid conditions, and allergies. Diagnosis: METABOLIC ENCEPHALOPATHY DEHYDRATION Otilio Score: 17,AT RISK WOUND DESCRIPTIONS: PATIENT'S RIGHT LATERAL THIGH ECCHYMOTIC AREA NOTED. NO OPEN AREA OR DRAINAGE NOTED AT TIME OF ASSESSMENT. PATIENT'S COCCYX RED AND BLANCHABLE AT TIME OF ASSESSMENT. NO OPEN AREA OR DRAINAGE AT TIME OF ASSESSMENT. Surface the patient is resting on: Isoflex SKIN PREVENTION RECOMMENDATION: 1. Pressure redistribution support surface as appropriate 2. Elevate heels 3. Remove boots/TEDS every shift and reapply 4. Head of bed 30 degrees as tolerated 5. Assess nutrition and hydration 6. Manage moisture 7. Avoid the use of containment devices while in bed 8. Use absorptive products on surfaces limit layers of linens on bed 9. Turn and reposition every 1-2 hours in bed and every 1 hour in chair as tolerated 10. Weight shifts every 15 minutes while up in chair 11. Offloading with pillows or device to keep heels elevated off bed 12. Monitor skin at least every shift 13. Inspect under medical devices twice a day WOUND TREATMENT RECOMMENDATIONS: WHEEL CHAIR CUSION WHEN OUT OF BED. HYDRAGUARD TO COCCYX AND BUTTOCKS EVERY SHIFT AND PRN SOILING.
[2019-07-03 08:00] VITALS: BP 172/80; BP 172/90
--- NOTE | 2019-07-03 09:03 | NUR ---
Dr. Avila notified of wound care recommendations.
--- NOTE | 2019-07-03 09:06 | NUR ---
IV started left antecubital with #22 protective cath after 1 attempts. Site prepped with Chloroprep. Sterile dressing applied. Patient tolerated procedure well. NORMAL SALINE infusing at 70 cc/hr. PT ALERT TO SELF. PULLED IV OUT AND TELEMETRY OFF. PT ATTEMPTING TO LEAVE.COMPLETE LINEN CHANGE AT THIS TIME D/T INCONTINENCE AND BLOOD FROM IV BEING REMOVED. PT YELLING BUT COOPERATIVE.PA BATHED PT AT THIS TIME.
--- NOTE | 2019-07-03 11:46 | NUR ---
TYRESE spoke with the patients . At this time she wants all decision refered to the [facility]- Shaniqua Vincent. Patients stated that she is no longer able to care for the patient at home. TYRESE spoke with the patients in great detail about the patient and him not being able to return to her home. TYRESE will contact the [facility]- Anna Pearson to see what the discharge plans will be for this patient. Patient recently was at [facility] and was left 06/28/2019. -TYRESE Salas
[2019-07-03 12:00] VITALS: BP 119/73
--- NOTE | 2019-07-03 13:37 | NUR ---
SUPERVISOR WET POUR reached out to the patients daughter/DPOA-HC. Patients daughter stated that if the patient needs SNF we can refer the patient to a facility of her sister in laws, Carmella luis alfredo Kumar. If not the plan will be for the patient to return home with her brother. Patients daughter stated that there are enough funds available for the patient to have 24/hr care at her brothers if he were to return home. SUPERVISOR WET POUR will contact the patients daughter in law Carmella to get her choice in SNF. As SUPERVISOR WET POUR was speaking with Anna Pearson, Carmella was calling her. SUPERVISOR WET POUR will wait to reach out to Carmella due to this. Patients daughter Anna Pearson stated that if the patient was to return to her brothers, at that time they would make a decision to take the back down to [place] or not. SUPERVISOR WET POUR spoke with the Dr. Avila about PT/OT orders being obtained for SNF Placement. -TYRESE Salas
--- NOTE | 2019-07-03 13:45 | NUR ---
NOTIFIED [facility] OF NEW CONSULT FOR PALLIATIVE CARE.
--- NOTE | 2019-07-03 14:35 | NUR ---
BRAKE TESTER spoke with Dr. Brown about SNF vs Hospice. BRAKE TESTER spoke with patients daughter DPOA-HC about Hospice. She stated we would need to contact her sister in Law to arrange Hospice. BRAKE TESTER reached out to Carmella and left a message for return call. -TYRESE Salas
--- NOTE | 2019-07-03 15:22 | NUR ---
ADDRESSING MACHINE OPERATOR received call back from Carmella. ADDRESSING MACHINE OPERATOR explained to her that the patient would probably not benefit from another SNF stay at this time. ADDRESSING MACHINE OPERATOR explained per the patient would be Hospice appropriate. Patients daugher in law understood. Patient will be returning to her and her husbands (patients son) home at discharge. ADDRESSING MACHINE OPERATOR received new Hospice referral for [facility] as the patients son resides in [place], [place]. ADDRESSING MACHINE OPERATOR faxed referral to [facility]. They will contact the patients son and daughter in law to schedule a meeting. ADDRESSING MACHINE OPERATOR to follow. -TYRESE Salas
[2019-07-03 16:00] VITALS: BP 123/85
--- NOTE | 2019-07-03 16:06 | NUR ---
[facility] WILL MEET WITH FAMILY AT 07/04 PER BRITNI.
[2019-07-03 20:00] VITALS: BP 110/68
--- NOTE | 2019-07-03 22:40 | NUR ---
PATIENT TOOK MEDS WHOLE IN APPLESAUCE WITHOUT DIFFICULTY. DENIES COMPLAINTS OF PAIN OR DISCOMFORT AT THIS TIME. WILL CONTINUE TO MONITOR. CALL LIGHT IN REACH.
[2019-07-04] VITALS: BP 143/77
--- NOTE | 2019-07-04 03:11 | NUR ---
24 HR chart check completed.
--- NOTE | 2019-07-04 07:30 | NUR ---
PT RESTING IN BED. VOICES NO CONCERNS AT THIS TIME. BED ALARM ON. SIDE RAILS UP. PT ALERT TO SELF. REORIENTATION NECCESSARY. NO S/S OF DISTRESS. REPS EASY AND NON LABORED. CALL LIGHT WITHIN REACH.
[2019-07-04 08:00] VITALS: BP 122/80
--- NOTE | 2019-07-04 08:21 | NUR ---
PT PULLED IV OUT. ATTEMPTED TO RESTART BUT WAS UNABLE. WILL HAVE ANOTHER RN ATTEMPT.
--- NOTE | 2019-07-04 09:00 | NUR ---
HOSPICE IS MEETING WITH FAMILY THIS AM.
--- NOTE | 2019-07-04 09:24 | NUR ---
IV started right antecubital with #24 protective cath after 2 attempts. Site prepped with Chloroprep. Sterile dressing applied. Patient tolerated procedure well. SHAYLA BOYLE
--- NOTE | 2019-07-04 10:00 | NUR ---
[facility] HERE TO MEET WITH MARKEL
--- NOTE | 2019-07-04 10:22 | NUR ---
Shift chart check completed.
--- NOTE | 2019-07-04 10:28 | NUR ---
At utilization reveiw meeting, doctor reported that Hospice was coming to the hospital @ 2pm to discuss services. Keiry Larson OTR/l
--- NOTE | 2019-07-04 10:58 | NUR ---
PT FOUND SITTING ON SIDE OF BED. REMOVED GOWN AND ATTEMPTING TO PULL OUT IV. PT RE ORIENTED AND TAKEN TO THE BATHROOM. CURRENTLY RESTING IN BED. SIDE RAILS UP. BED ALARM ON. CALL LIGHT WITHIN REACH.
--- NOTE | 2019-07-04 11:37 | NUR ---
TYRESE spoke with the RN from [facility]. Plan is to admit patient GIP with the intent to move him to the sons home in a couple of day. [facility] is emailing consent forms to the patients daughter-Anna Pearson to have them signed as she is DPOA-HC. RECREATION THERAPIST reached out to the patients to provide an update on patients care status. Patients stated she was aware that a meeting would be taking place on a Wednesday but was not sure if it was this Wednesday or Next Wednesday. was not present during the family meeting with [facility]. -TYRESE Salas
--- NOTE | 2019-07-04 11:39 | NUR ---
HOSPICE NURSE WAS CONCERNED PT WAS RETAINING URINE. BLADDER SCANNED AND FOUND TO HAVE >300ML LEFT IN BLADDER AFTER ATTEMPTING TO URINATE
--- NOTE | 2019-07-04 11:55 | NUR ---
SPOKE WITH DR SANDERS REGARDING NEW REQUESTS FOR HOSPICE ORDERS. STATED HE WOULD COME UP AND LOOK AT IT.
[2019-07-04 12:00] VITALS: BP 146/58
--- NOTE | 2019-07-04 12:23 | NUR ---
PHYSICAL THERAPY Per staff meeting pt and family to have meeting this morning regarding hospice, will follow pending decision by family/pt, thank you Charlotte Chowdhury PT
--- NOTE | 2019-07-04 12:28 | NUR ---
Discharge instructions reviewed with patient/family. Patient receptive and verbalizes understanding. Follow-up care arranged. Written instructions given to patient/family. The Discharge Plan/Instructions have been completed.
== END 2019-07-04 12:57 | disposition hospice, home (50) | DRG 640 ==
LOC: ED 14:56 → EDHOLD 17:32 → 4E 17:32
PROVIDERS: Emergency Medicine; Internal Medicine; ADMIT Internal Medicine
DX: E86.0 Dehydration (principal); G93.41 Metabolic encephalopathy; N39.0 Urinary tract infection, site not specified; E87.2 Acidosis; I16.0 Hypertensive urgency; R62.7 Adult failure to thrive; Z68.24 Body mass index [BMI] 24.0-24.9, adult; R73.9 Hyperglycemia, unspecified; R31.9 Hematuria, unspecified; I48.0 Paroxysmal atrial fibrillation; K21.9 Gastro-esophageal reflux disease without esophagitis; I12.9 Hypertensive chronic kidney disease with stage 1 through stage 4 chronic kidney disease, or unspecified chronic kidney disease; N18.3 Chronic kidney disease, stage 3 (moderate); G62.9 Polyneuropathy, unspecified; D53.9 Nutritional anemia, unspecified; M41.80 Other forms of scoliosis, site unspecified; M43.10 Spondylolisthesis, site unspecified; M19.90 Unspecified osteoarthritis, unspecified site; E55.9 Vitamin D deficiency, unspecified; Z85.038 Personal history of other malignant neoplasm of large intestine; Z90.49 Acquired absence of other specified parts of digestive tract; Z82.3 Family history of stroke; Z82.49 Family history of ischemic heart disease and other diseases of the circulatory system; Z88.5 Allergy status to narcotic agent; Z79.899 Other long term (current) drug therapy; Z79.82 Long term (current) use of aspirin; Z87.891 Personal history of nicotine dependence

== ENCOUNTER 2019-07-04 12:59 | Inpatient (IN) | payer OTHER, MEDICARE, BC ==
[~2019-07-04] VITALS: Ht 188 cm; Wt 75.7 kg
[~2019-07-04 12:59] MED LIST changes: +DULOXETINE HCL60 MG PO; +MEMANTINE HCL10 MG PO; +NORVASC5 MG PO; +POTASSIUM CHLO20 ME4 PO
--- NOTE | 2019-07-04 13:00 | NUR ---
The assessment has been completed. SHAYLA BOYLE Time: 1300 A 89 year old MALE admitted to under services of ASHTYN WOOD DO. Pt. arrived via ambulatory from [place]. Chief complaint: ADULT FAILURE TO THRIVE. SHAYLA BOYLE
--- NOTE | 2019-07-04 14:43 | NUR ---
UPDATED ON PLAN OF CARE. VOICING CONCERN REGARDING ABDOMNIAL PAIN. RE BLADDER SCANNED PATIENT. FOUND TO HAVE 157ML OF URINE. EXPLAINED TO THAT STRAIGHT CATHETERIZATION WAS NOT WARRANTED.
[2019-07-04 16:00] VITALS: BP 139/62
--- NOTE | 2019-07-04 16:31 | NUR ---
PT PULLED OUT IV AT THIS TIME. NO ATTEMPTS TO RESTART AT THIS TIME.
[2019-07-04 20:00] VITALS: BP 150/82
--- NOTE | 2019-07-04 23:17 | NUR ---
ATIVAN ADMINISTERED AT THIS TIME . PT RESTLESS AND ATTEMPTING TO CRAWL OUT OF BED.
[2019-07-05] VITALS: BP 156/57
--- NOTE | 2019-07-05 01:29 | NUR ---
24 HOUR CHART CHECK COMPLETE.
[2019-07-05 08:00] VITALS: BP 146/88
[2019-07-05 12:00] VITALS: BP 156/88
[2019-07-05 16:00] VITALS: BP 126/88
--- NOTE | 2019-07-05 16:15 | NUR ---
PT STRAIGHT CATHED FOR 1000CC STRAW URINE PER POLICY. PT TOLERATED WELL.
--- NOTE | 2019-07-05 17:00 | NUR ---
HOSPICE IN TO SEE PT, NO RECOMMENDATIONS/ORDERS AT THIS TIME.
[2019-07-05 20:00] VITALS: BP 123/75
[2019-07-06] VITALS: BP 145/95
--- NOTE | 2019-07-06 04:23 | NUR ---
PATIENT FOUND ON FLOOR OUTSIDE BATHROOM NAKED WITH LARGE BM OUTPUT. NO ALARM SOUNDS TO ALERT STAFF. PATIENTS VITAL SIGNS HR 86, 20 RESP, 124/62, 99% RA. DR STOREY MADE AWARE. SS MADE AWARE. PATIENT FOUND TO HAVE ABRASION TO LT ELBOW. PATIENT WALKED BACK TO BED X3 STAFF ASSIST, BRIEF PLACED, REPOSITIONED AND BED ALARM MAINTAINED. REORIENTED AND CALL LIGHT IN REACH.
[2019-07-06 04:25] VITALS: BP 124/62
--- NOTE | 2019-07-06 05:05 | NUR ---
BLADDER SCAN SHOWS >500 STRAIGHT CATH FOR 900CC CORRIE URINE PER ORDER
--- NOTE | 2019-07-06 06:28 | NUR ---
TUTU BANSALMIKE [id number] Please refer to the physician's history and physical for past medical history, comorbid conditions, and allergies. Diagnosis: ADULT FAILURE TO THRIVE Otilio Score: , WOUND DESCRIPTIONS: Wound Number: 3 Location of the wound: left elbow Type of wound: skin tear Thickness: Partial Size: 0.8cm x 0.4cm x 0.1cm Tunneling: none Undermining: none Sinus Tract: none Presence of Exudate: Serosanguineous Amount: Light Color: Red Odor: None Periwound Skin Appearance: Normal Wound edges: approximated Pain (associated with wound): none at time of assessment How does patient state this happened? pt unable to state how this happened Surface the patient is resting on: Isoflex SKIN PREVENTION RECOMMENDATION: 1. Pressure redistribution support surface as appropriate 2. Elevate heels 3. Remove boots/TEDS every shift and reapply 4. Head of bed 30 degrees as tolerated 5. Assess nutrition and hydration 6. Manage moisture 7. Avoid the use of containment devices while in bed 8. Use absorptive products on surfaces limit layers of linens on bed 9. Turn and reposition every 1-2 hours in bed and every 1 hour in chair as tolerated 10. Weight shifts every 15 minutes while up in chair 11. Offloading with pillows or device to keep heels elevated off bed 12. Monitor skin at least every shift 13. Inspect under medical devices twice a day WOUND TREATMENT RECOMMENDATIONS: Skin tear guidelines: cleanse left elbow with nss and apply sureprep around the wound hydrogel to wound bed and cover with optifoam gentle.
[2019-07-06 08:00] VITALS: BP 133/90
--- NOTE | 2019-07-06 09:56 | NUR ---
[facility] IN TO SEE PT. ARRANGEMENTS BEING MADE FOR DISCHARGE HOME ON HOPSICE WITH THE SON.
--- NOTE | 2019-07-06 10:08 | NUR ---
TYRESE reached out to [facility]. They just received the information from the the RN who assess the patient. They are ordering the equipment today. [facility] will let this RN know when the equipment has been delivered. TYRESE spoke with RN Hospitalist Coordinator, she is aware. -TYRESE Salas
--- NOTE | 2019-07-06 10:48 | NUR ---
RUBBER WORKER received call back from [facility]. Equipment will be delivered approximately 2-3 hours. RUBBER WORKER contacted RN Hospitalist Coordinator Ibis, she is aware. RUBBER WORKER will follow up with the patients family after this time frame to ensure the family will be available for patients discharge and his arrival to their home. -TYRESE Salas
[2019-07-06 12:00] VITALS: BP 132/88; BP 142/75
--- NOTE | 2019-07-06 13:35 | NUR ---
PT IS CURRENTLY [facility] HOSPICE. WILL CONTINUE TO FOLLOW.
--- NOTE | 2019-07-06 13:35 | NUR ---
CHOIR SINGER spoke with the patients son who stated he was at work. CHOIR SINGER contacted patients daughter in law Carmella. Carmella stated that the [facility] equipment has been deliviered. She requested a transport after 3pm today. The address the patient will be going to is [address] [place] [address]. Once discharge is sent over CHOIR SINGER will arrange transportation. CHOIR SINGER also spoke with the Social Workers from [facility], they were visiting the patient and meeting with the patients . Public Service Officer is aware of discharge plans. Dr. Avila has been notified. -TYRESE Salas
[2019-07-06] MEDS ORDERED: MOBIC7.5 MG PO (13:41)
[2019-07-06] MEDS ORDERED: LORAZEPAM0.5 MG PO (13:41)
[2019-07-06] MEDS ORDERED: MEMANTINE HCL10 MG PO (13:41)
--- NOTE | 2019-07-06 13:43 | NUR ---
DRAMA PROFESSOR FROM [facility] IN WITH PATIENT AND SPEAKING WITH HIS
--- NOTE | 2019-07-06 14:05 | NUR ---
TANK CAR LOADER notified of patients discharge. TANK CAR LOADER spoke with [facility]. They are able to transport the patient between 3:30pm and 4:00pm today. TANK CAR LOADER notified the patients daughter in law of the milk pickup driver time. TANK CAR LOADER attempted to reach [facility] Anna Pearson, mailbox is full. TANK CAR LOADER spoke with the patients at bedside and explained this to her as well. Patients stated she received a message about a prescription that was sent in and had questions about it for the patients RN. TANK CAR LOADER spoke with RNAlphonso who stated she would be in to speak with the patient. TANK CAR LOADER notified [facility] of discharge time. -TYRESE Salas
--- NOTE | 2019-07-06 15:36 | NUR ---
Discharge instructions reviewed with patient/family. Patient receptive and verbalizes understanding. Follow-up care arranged. Written instructions given to patient/family. [facility] AZEVEDO
== END 2019-07-06 15:36 | disposition hospice, home (50) | DRG 640 ==
LOC: 4E 12:59
PROVIDERS: ADMIT Internal Medicine
DX: E86.0 Dehydration (principal); G93.41 Metabolic encephalopathy; N39.0 Urinary tract infection, site not specified; E87.2 Acidosis; N18.3 Chronic kidney disease, stage 3 (moderate); R91.1 Solitary pulmonary nodule; R73.9 Hyperglycemia, unspecified; G62.9 Polyneuropathy, unspecified; R31.9 Hematuria, unspecified; I16.0 Hypertensive urgency; R62.7 Adult failure to thrive; E83.39 Other disorders of phosphorus metabolism; D53.9 Nutritional anemia, unspecified; K57.90 Diverticulosis of intestine, part unspecified, without perforation or abscess without bleeding; F03.90 Unspecified dementia, unspecified severity, without behavioral disturbance, psychotic disturbance, mood disturbance, and anxiety; I48.0 Paroxysmal atrial fibrillation; K21.9 Gastro-esophageal reflux disease without esophagitis; M10.9 Gout, unspecified; M48.00 Spinal stenosis, site unspecified; M41.80 Other forms of scoliosis, site unspecified; M43.10 Spondylolisthesis, site unspecified; M19.90 Unspecified osteoarthritis, unspecified site; I12.9 Hypertensive chronic kidney disease with stage 1 through stage 4 chronic kidney disease, or unspecified chronic kidney disease; Z51.5 Encounter for palliative care; Z90.49 Acquired absence of other specified parts of digestive tract; Z82.3 Family history of stroke; Z82.49 Family history of ischemic heart disease and other diseases of the circulatory system; Z88.5 Allergy status to narcotic agent; Z79.82 Long term (current) use of aspirin